=== PATIENT | female | born 1955 | race Caucasian/White ===

== ENCOUNTER → 2017-10-12 | Outpatient (CLI) | payer BC, OTHER ==
[~2017-10-12] MED LIST: ATOR40TA16 PO; CALC1TAB16 PO; CALCIUM WITH D PO; CALCTAB32 OR; IBUP-232 PO; MULTTAB67 PO; PRAV20TA67 PO; TAB-TAB PO
--- NOTE | 2017-10-12 21:50 | EKG ---
Date Performed: 10/12/2017 Time Performed: 09:46:16 PTAGE: 62 years EKG: Sinus bradycardia Normal ECG except for rate NO PREVIOUS TRACING DOCTOR: Hebert Anna Interpretating Date/Time 10/12/2017 21:48:52
== END ==
LOC: CPRE 09:21
PROVIDERS: ATTEND Surgery
DX: Z01.810 Encounter for preprocedural cardiovascular examination (principal)
CPT/HCPCS: 93005

== ENCOUNTER → 2017-10-20 | Day surgery (SDC) | payer BC, OTHER ==
--- NOTE | 2017-10-17 16:30 | MH ---
cc: Paulette MARKS M.D. DATE OF ADMISSION: 10/20/2017 ADMITTING DIAGNOSIS: Torn lateral meniscus right knee, now for arthroscopy right knee. HISTORY OF PRESENT ILLNESS: The patient is a 62 year-old female is being admitted today for arthroscopy right knee due to torn lateral meniscus. PAST HISTORY: History of high cholesterol for which she takes Avastin. PAST SURGICAL HISTORY: 1. Rotator cuff repair. 2. Hysterectomy. 3. Tonsillectomy. REVIEW OF SYSTEMS: Noncontributory. FAMILY HISTORY: Noncontributory. SOCIAL HISTORY: She does not smoke or drink. ALLERGIES SULFA. PHYSICAL EXAMINATION: We find a 62 year-old female well-developed, well-nourished oriented x3 complaining of pain in the right knee. Vital signs: Blood pressure 136/82, pulse 75 regular, respirations 18, temperature 97.8, pulse oximetry 98% on room air. HEENT: Eyes PERRL, EOMI. Ears, nose, mouth: clear. Neck: Supple. Lungs: Clear. Heart: Regular rate. Abdomen: Soft. Positive bowel sounds, nontender. Extremities: The right knee is tender about the lateral joint margin. Neurovascular: She is neurovascularly intact to her toes. IMPRESSION Torn lateral meniscus right knee. PLAN Admission for arthroscopy right knee today. The patient was given prescription for postoperative pain control in the office. JMD KRYS Stiles/YULI /3:39 PM /3:58 PM
[~2017-10-20] VITALS: Ht 172.7 cm; Wt 122.5 kg
[~2017-10-20] MED LIST changes: +ACETAMINOPHEN/HYDROcodone 325 MG/5 MG TAB ONE; +BUPIVACAINE HCL PF 0.25% 30 ML VIAL ONE; -CALCIUM WITH D PO; -CALCTAB32 OR; +CHLORHEXIDINE GLUCONATE 2 % 1 PACK (2 CLOTHS) TOPICAL PRN; +CHLORHEXIDINE GLUCONATE 4% SOLN 120 ML BTL TOPICAL SCH; +DEXAMETHASONE SOD PHOS 4 MG/ML VIAL ONE; +LACTATED RINGER'S 1000 ML IV PRN; +MEPERIDINE HCL 25 MG/ML VIAL ONE; +METOPROLOL TARTRATE 25 MG TAB PO PRN; +MIDAZOLAM HCL 2 MG/2 ML VIAL ONE; +MORPHINE SULFATE 4 MG/ML INJ ONE; +POVIDONE IODINE 5% (ANTISEPSIS KIT) 4 APPLICATIONS EACH NARE PRN; -PRAV20TA67 PO; +SODIUM CHLORID 0.9% 500 ML IV PRN; -TAB-TAB PO; +TRIAMCINOLONE ACETONIDE 40 MG/ML VIAL ONE; +ceFAZolin 2 GM PREMIX 50 ML IV SCH
[2017-10-20 10:30] VITALS: PULSE 79
--- NOTE | 2017-10-20 10:47 | MP ---
cc: Paulette AMRKS M.D. DATE OF SURGERY 10/20/2017 PREOPERATIVE DIAGNOSIS Torn lateral meniscus right knee. POSTOPERATIVE DIAGNOSIS Torn lateral meniscus right knee. SURGERY PERFORMED Arthroscopy, excision of torn lateral meniscus right knee. SURGEON Dr. Marks ROOM SERVICE FOOD SERVICE ATTENDANT Frank Shepherd, [facility] ANESTHESIA General LMA PROCEDURE WAS FOLLOWS The patient was brought to the operating room and placed on the operating room table in the supine position. After successful induction of general anesthesia, the patient's right leg was prepped and draped in the usual manner. The knee was then placed in a knee morgan and tightened. Arthroscopic examination was then performed by making a stab wound over the proximal superior and medial aspect of the patellofemoral joint for insertion of the inflow cannula and fluid, followed by stab wounds over the medial and lateral joint margins respectively for insertion of the arthroscope, shaver and probe. Arthroscopic examination was then performed which revealed intact medial compartment, intact anterior cruciate, intact patellofemoral joint. The lateral compartment was found to have a complex tear of the lateral meniscus shaved smooth using ArthroCare cutter, shaver and probe to afford a smooth surface. The rest of the lateral compartment found to be intact. The wound was irrigated copiously with lactated Ringer's solution. Excess fluid removed. 9 cc of 0.25% Marcaine plain, 1 cc of Decadron inserted into the knee joint. Skin approximately with interrupted 3-0 nylon suture. Wet and then dry dressing applied to the wound followed by Xeroform gauze, sterile dressing and thigh-high Hayden wrap. No tourniquet utilized. Estimated blood loss 10 cc. Sponge count correct. The patient tolerated procedure well and left the operating room in satisfactory condition. MD KRYS Dickerson/EMMA /10:14 AM 10:19 AM
[2017-10-20 12:15] VITALS: BP 126/77; PULSE 64; RESP 16; TEMP 97.8; O2SAT 98
== END | disposition home or self-care (01) ==
LOC: PHSDC 06:39
PROVIDERS: ATTEND Surgery
DX: S83.281A Other tear of lateral meniscus, current injury, right knee, initial encounter (principal); E78.00 Pure hypercholesterolemia, unspecified
CPT/HCPCS: 01400; 29881; J0690; J1100; J2175; J2250; J2270; J7120; J3301